=== PATIENT | male | born 1935 | race Hispanic/Latino ===

== ENCOUNTER 2022-02-07 02:46 | Emergency (ER) | payer MEDICARE ==
[~2022-02-07] VITALS: Ht 167.6 cm; Wt 66.7 kg
[2022-02-07 05:05] VITALS: BP 136/55
== END 2022-02-07 07:25 | disposition left against medical advice (07) ==
LOC: EDH 02:46
DX: R42 Dizziness and giddiness (principal); Z53.21 Procedure and treatment not carried out due to patient leaving prior to being seen by health care provider